=== PATIENT | male | born 1990 | race Native Hawaiian/Other Pacific Islander ===

== ENCOUNTER 2017-06-28 22:19 | Emergency (ER) | payer OTHER ==
[2017-06-28 22:30] VITALS: BP 128/84; PULSE 78; RESP 18; TEMP 97.7; O2SAT 99
--- NOTE | 2017-06-28 23:41 | ED PDOC ---
HPI: Skin/Bite Injury Time Seen by Provider: 06/28/17 22:38 Chief Complaint (Nursing): Abnormal Skin Integrity Additional Complaint(s): 27yo M in ED student of [facility]-sustained a head injury while doing [employer]-fell and hit his chin on floor sustaining a laceration. tetanus is uptodate. negative for LOC, headache, vision changes, changes in speech, gait, memory. no pain with jaw /speaking. Past Medical History Reviewed: Historical Data, Nursing Documentation, Vital Signs Vital Signs: Last Vital Signs Temp 97.7 F 06/28/17 22:26 Pulse 78 06/28/17 22:26 Resp 18 06/28/17 22:26 BP 128/84 06/28/17 22:26 Pulse Ox 99 06/28/17 22:26 - Medical History PMH: No Chronic Diseases - Family History Family History: States: No Known Family Hx - Home Medications Home Medications: Ambulatory Orders Medication Instructions Recorded Cephalexin [cephalexin] 500 mg PO BID #20 cap 06/28/17 - Allergies Allergies/Adverse Reactions: Allergies Allergy/AdvReac Type Severity Reaction Status Date / Time No Known Allergies Allergy Verified 06/28/17 22:26 Review of Systems ROS Statement: Except As Marked, All Systems Reviewed And Found Negative Constitutional: Negative for: Fever, Chills Skin: Positive for: Rash Physical Exam - Reviewed Nursing Documentation Reviewed: Yes Vital Signs Reviewed: Yes - Physical Exam Appears: Positive for: Well, Non-toxic, No Acute Distress Head Exam: Positive for: NORMAL INSPECTION, NORMOCEPHALIC. Negative for: ATRAUMATIC (laceration 4.5inch deep irregular shape with active bleeding . no TMJ tenderness able to break a tongue depressor without complaints. ) Skin: Positive for: Normal Color, Warm, DRY Eye Exam: Positive for: EOMI, Normal appearance, PERRL Cardiovascular/Chest: Positive for: Regular Rate, Rhythm Respiratory: Positive for: CNT, Normal Breath Sounds Neurologic/Psych: Positive for: Alert, Oriented - ECG O2 Sat by Pulse Oximetry: 99 Medical Decision Making Medical Decision Making: wound care instructions provided to pt. Abx provided to pt. keep wound clean, not wet return in 8days for removal. stable VS and ready for d/c Disposition - Clinical Impression Clinical Impression: Laceration, Head injury Counseled Patient/Family Regarding: Studies Performed, Diagnosis, Need For Followup, Rx Given - Disposition [facility]errals: [facility] [Outside] Disposition: Routine/Home Disposition Time: 23:39 Condition: STABLE Additional Instructions: please keep wound clean and dry-do not wet wound. make sure to keep wound open to room air after the first day to help with healing. have your wound evaluated for suture removal in 8days. do not cover the wound too tightly-that may cause too much pressure on wound and cause infection. Prescriptions: Cephalexin [cephalexin] 500 mg PO BID #20 cap Instructions: Care For Your Stitches (ED), Laceration (ED), Care For Your Absorbable Stitches (ED) Forms: [employer] (Mauritian) Procedure: Wound Repair - Time Performed Time Performed: 00:05 - Time Out Time Out: Side verified, Site verified, Patient ID confirmed, Sterile procedures obs. - Consent Obtained Consent obtained: Emergent consent implied - Performed by Performed by: Mid-level Provider - Indications Indication(s):: Laceration - Location Shape:: Curvilinear Dimensions Length cm: 4.5 Depth:: Subcutaneous fascia - Anesthetic Technique Anesthetic Technique: Topical Local/Regional Anesthetic:: Lidocaine 1% - Wound Examination Wound Examination:: Contaminated - Debris Debris:: None - Irrigated Irrigated with ml of normal saline: 250 with betadine - Complexity Complexity:: Intermediate (2 layer) (deep layer#2-4-0 absorbable. top layer-#7 nylon 4-0 simple interrupted) - Patient tolerated procedure Patient Tolerated Procedure:: Well
== END 2017-06-28 23:50 | disposition home or self-care (01) ==
LOC: H.ER 22:19 → EDBD 22:19 → H.ER 23:50
DX: S01.81XA Laceration without foreign body of other part of head, initial encounter (principal); S09.90XA Unspecified injury of head, initial encounter; W19.XXXA Unspecified fall, initial encounter; Y93.75 Activity, martial arts

== ENCOUNTER 2017-07-05 13:22 | Emergency (ER) | payer OTHER ==
[2017-07-05 13:36] VITALS: BP 138/75; PULSE 60; RESP 16; TEMP 98.4; O2SAT 98
--- NOTE | 2017-07-05 14:33 | ED PDOC ---
HPI: Wound Care - HPI Time Seen by Provider: 07/05/17 14:12 Chief Complaint (Nursing): Suture/Staple Removal Chief Complaint (Provider): suture removal History Per: Patient Additional Complaint(s): 27yo M in ED for stuure removal to chin form karate accident sutures placed 7d ago. no fever no drainage no pain Past Medical History Reviewed: Historical Data, Nursing Documentation, Vital Signs Vital Signs: Last Vital Signs Temp 98.4 F 07/05/17 13:34 Pulse 60 07/05/17 13:34 Resp 16 07/05/17 13:34 BP 138/75 07/05/17 13:34 Pulse Ox 98 07/05/17 13:34 - Medical History PMH: No Chronic Diseases - Family History Family History: States: No Known Family Hx - Home Medications Home Medications: Ambulatory Orders Medication Instructions Recorded Cephalexin [cephalexin] 500 mg PO BID #20 cap 06/28/17 - Allergies Allergies/Adverse Reactions: Allergies Allergy/AdvReac Type Severity Reaction Status Date / Time No Known Allergies Allergy Verified 06/28/17 22:26 Review of Systems ROS Statement: Except As Marked, All Systems Reviewed And Found Negative Constitutional: Negative for: Fever, Chills Physical Exam - Reviewed Nursing Documentation Reviewed: Yes Vital Signs Reviewed: Yes - Physical Exam Appears: Positive for: Well, Non-toxic, No Acute Distress Head Exam: Positive for: ATRAUMATIC, NORMAL INSPECTION, NORMOCEPHALIC Skin: Positive for: Normal Color, Warm, Rash (sutures noted to chin sutures are in place, no wound dehescience no drainage no ertythema) Eye Exam: Positive for: EOMI, Normal appearance, PERRL ENT: Positive for: Normal ENT Inspection Neurologic/Psych: Positive for: Alert, Oriented - ECG O2 Sat by Pulse Oximetry: 98 Medical Decision Making Medical Decision Making: sutures require two more days in place steri strips applied. advised to continue wound care Disposition - Clinical Impression Clinical Impression: Visit for wound check - Patient ED Disposition Is Patient to be Admitted: No Counseled Patient/Family Regarding: Need For Followup - Disposition Disposition: Routine/Home Disposition Time: 14:33 Condition: STABLE Additional Instructions: return in 2 days for removal Instructions: Care For Your Stitches (ED)
== END 2017-07-05 14:40 | disposition home or self-care (01) ==
LOC: H.ER 13:22
DX: Z48.02 Encounter for removal of sutures (principal)

== ENCOUNTER 2018-05-23 10:00 | Emergency (ER) | payer OTHER ==
[2018-05-23 10:17] VITALS: O2SAT 99; BMI 29.9
[2018-05-23] MEDS ORDERED: Tdap Vaccine 0.5 ml Vial (10-64 yrs) IM ONE ×2 (11:06→11:26)
--- NOTE | 2018-05-23 11:21 | ED PDOC ---
Upper Extremity Pain/Injury Time Seen by Provider: 05/23/18 10:53 Chief Complaint (Nursing): Abnormal Skin Integrity History Per: Patient Additional Complaint(s): Pt. states earlier today he was using a knife to cut a piece of chicken but accidentally cut his R 2nd digit causing a laceration. Pt. states he is unable to completely straighten out R 2nd digit. Denies numbness, tingling, other injury. Past Medical History Reviewed: Historical Data, Nursing Documentation, Vital Signs Vital Signs: Last Vital Signs Temp 97.5 F L 05/23/18 10:15 Pulse 82 05/23/18 10:15 Resp 18 05/23/18 10:15 BP 159/74 H 05/23/18 10:15 Pulse Ox 99 05/23/18 10:15 - Surgical History Surgical History: No Surg Hx - Family History Family History: States: No Known Family Hx - Immunization History Hx Tetanus Toxoid Vaccination: No Hx Influenza Vaccination: Yes Hx Pneumococcal Vaccination: No - Home Medications Home Medications: Ambulatory Orders Medication Instructions Recorded Cephalexin [cephalexin] 500 mg PO BID #20 cap 06/28/17 Amoxicillin/Clavulanate [Augmentin 1 tab PO BID #14 tab 05/23/18 500 MG-125 MG] - Allergies Allergies/Adverse Reactions: Allergies Allergy/AdvReac Type Severity Reaction Status Date / Time No Known Allergies Allergy Verified 06/28/17 22:26 Review of Systems ROS Statement: Except As Marked, All Systems Reviewed And Found Negative Physical Exam - Physical Exam Appears: Positive for: Well, Non-toxic, No Acute Distress Skin: Positive for: Normal Color, Warm. Negative for: Rash Eye Exam: Positive for: Normal appearance Pulses-Radial (L): 2+ Pulses-Radial (R): 2+ Extremity: Negative for: Normal ROM (RIGHT 2nd digit: slightly flexed at dip; able to flex but unable to completely extend DIP; 1cm eliptical laceration without active bleeding; nail intact; cap refill < 2 seconds; distal sensation intact) - ECG O2 Sat by Pulse Oximetry: 99 - Radiology X-Ray: Interpreted by Me (L 2nd x-ray) X-Ray Interpretation: No Acute Disease - Progress ED Course And Treament: Tetanus prophylaxis administered. R 2nd digit x-rays ordered. Case d/w Dr. Hi (hand interpersonal communications professor) who requests wound to be closed with nylon 4- 0 and to have pt. f/u in his office in 2 weeks. Also requests pt. to be placed in finger splint. Pt. informed of plan and agrees with care. Informed that he may have injured tendon and will need a hand specialist to evaluate him as it can cause a limitation in his ROM. Finger immobilized in aluminum fingers splint. Disposition - Clinical Impression Clinical Impression: Finger laceration involving tendon - Patient ED Disposition Is Patient to be Admitted: No - Disposition Referrals: Bret Hi MD [Medical Doctor] - Disposition: Routine/Home Disposition Time: 12:00 Condition: STABLE Additional Instructions: FOLLOW UP WITH DR. HI IN 2 WEEKS WITHOUT FAIL SUTURE REMOVAL IN 2 WEEKS SCAR MARIA, thank you for letting us take care of you today. Your provider was Rasheed Anguiano MD and you were treated for HAND LACERATION. The emergency medical care you received today was directed at your acute symptoms. If you were prescribed any medication, please fill it and take as directed. It may take several days for your symptoms to resolve. Return to the Emergency Department if your symptoms worsen, do not improve, or if you have any other problems. Please contact your doctor or call one of the physicians/clinics you have been referred to that are listed on the Patient Visit Information form that is included in your discharge packet. Bring any paperwork you were given at discharge with you along with any medications you are taking to your follow up visit. Our treatment cannot replace ongoing medical care by a primary care provider outside of the emergency department. Thank you for allowing the [facility] team to be part of your care today. If you had an X-Ray or CT scan: A Radiologist will review the ED reading if any change in treatment is needed we will contact you. If you had a blood, urine, or wound culture: It will take several days for the results, if any change in treatment is needed we will contact you. If you had an STI test: It will take 48 hours for the results. Please call after 1 week if you have not heard back. Prescriptions: Amoxicillin/Clavulanate [Augmentin 500 MG-125 MG] 1 tab PO BID #14 tab Instructions: Laceration Repair With Stitches (DC), Common Finger Injuries (DC) Forms: [employer] (Peruvian)
[2018-05-23] MEDS ORDERED: Bacitracin 500 Units/gm Oint Foilpak UD ONE (11:59)
[2018-05-23] MEDS ORDERED: Povidone Iodine Topical 10% Sol ONE (12:40)
[2018-05-23] MEDS ORDERED: Lidocaine PF 2% (5 ml) Inj (For Cardiac Arrhy) ONE (12:48)
--- NOTE | 2018-05-23 13:37 | RAD ---
Date of service: 05/23/2018 PROCEDURE: Left Index finger radiographs. HISTORY: trauma COMPARISON: None. TECHNIQUE: AP radiograph of the left hand, as well as spot oblique and lateral images of index finger were obtained. FINDINGS: LEFT INDEX FINGER: Normal left index finger, without fracture or focal lesion. Remainder of the left hand (as seen on the AP view) grossly intact. JOINTS: Normal. SOFT TISSUES: Soft tissue swelling 2nd digit. No visulaized radiopaque/visualized foreign body. OTHER FINDINGS: None. IMPRESSION: Soft tissue swelling without acute articular or osseous abnormality.
[2018-05-23 13:57] VITALS: BP 120/70; PULSE 74; RESP 99; TEMP 98.3
== END 2018-05-23 13:53 | disposition home or self-care (01) ==
LOC: H.ER 10:00
DX: S66.300A Unspecified injury of extensor muscle, fascia and tendon of right index finger at wrist and hand level, initial encounter (principal); W26.0XXA Contact with knife, initial encounter; Y92.89 Other specified places as the place of occurrence of the external cause